=== PATIENT | female | born 1990 | race Caucasian/White ===

== ENCOUNTER 2022-08-20 14:43 | Outpatient (CLI) | payer OTHER | END 2022-08-20 15:20 | disposition home or self-care (01) | LOC: LAB 14:43 | DX: A49.3 Mycoplasma infection, unspecified site (principal); Z20.828 Contact with and (suspected) exposure to other viral communicable diseases; J11.1 Influenza due to unidentified influenza virus with other respiratory manifestations; E11.9 Type 2 diabetes mellitus without complications; K85.90 Acute pancreatitis without necrosis or infection, unspecified ==